=== PATIENT | male | born 1995 | race Caucasian/White ===

== ENCOUNTER 2017-09-26 23:17 | Emergency (ER) | payer BC ==
[2017-09-26 23:25] VITALS: BP 131/77
== END 2017-09-27 01:38 | disposition left against medical advice (07) ==
LOC: ED 23:17
DX: R55 Syncope and collapse (principal); S09.93XA Unspecified injury of face, initial encounter; X58.XXXA Exposure to other specified factors, initial encounter; Z53.21 Procedure and treatment not carried out due to patient leaving prior to being seen by health care provider
CPT/HCPCS: 93005